=== PATIENT | female | born 1955 | race Caucasian/White ===

== ENCOUNTER 2016-05-17 21:27 | Emergency (ER) | payer OTHER ==
[~2016-05-17] VITALS: Ht 157.5 cm; Wt 68.2 kg
[2016-05-17 23:10] VITALS: BP 118/64
[2016-05-17] MEDS ORDERED: TraMADol HCL 50 MG TABLET PO ONE (23:15)
== END 2016-05-17 23:41 | disposition home or self-care (01) ==
LOC: EMS 21:30
DX: S80.02XA Contusion of left knee, initial encounter (principal); W20.8XXA Other cause of strike by thrown, projected or falling object, initial encounter; Y93.89 Activity, other specified; Y92.89 Other specified places as the place of occurrence of the external cause; Y99.8 Other external cause status
CPT/HCPCS: 29505; 99284